=== PATIENT | female | born 1950 | race Caucasian/White ===

== ENCOUNTER 2017-08-14 08:55 | Day surgery (SDC) | payer MEDICARE ==
[~2017-08-14] VITALS: Ht 154.9 cm; Wt 97.7 kg
[2017-08-14 09:35] VITALS: BP 121/65
[2017-08-14 10:10] LABS: INTERNATIONAL NORMALIZED RATIO 1.23 (0.93-1.1); PROTHROMBIN TIME 12.7 Seconds (9.6-11.5)
[2017-08-14] MEDS ORDERED: FENTANYL PF 100 MCG/2ML ONE (10:40)
[2017-08-14] MEDS ORDERED: MIDAZOLAM 1 MG/ML, 2ML ONE (10:40)
[2017-08-14] MEDS ORDERED: FLUMAZENIL 0.1 MG/1 ML, 5ML ONE (10:40)
[2017-08-14] MEDS ORDERED: NALOXONE 1 MG/ML, 2ML ONE (10:41)
[2017-08-14] MEDS ORDERED: LIDOCAINE 1%, 10ML ONE (10:46)
[2017-08-14] MEDS ORDERED: VISIPAQUE 320MG/ML, 50ML BOTTLE ONE (11:55)
== END 2017-08-14 13:35 | disposition home or self-care (01) ==
LOC: OUT 08:55
PROVIDERS: ATTEND Internal Medicine Gastroenterology
DX: K74.69 Other cirrhosis of liver (principal); R18.8 Other ascites; Z79.899 Other long term (current) drug therapy; E66.9 Obesity, unspecified; Z68.39 Body mass index [BMI] 39.0-39.9, adult; I10 Essential (primary) hypertension; E11.9 Type 2 diabetes mellitus without complications; E03.9 Hypothyroidism, unspecified; Z90.49 Acquired absence of other specified parts of digestive tract; Z79.82 Long term (current) use of aspirin
CPT/HCPCS: 36011; 36415; 37200; 75970; 76937; 85610; 88307; 88313; 99156; 99157; C1751; C1769; C1894; J2250; J3010; J3490; Q9967; J2310

== ENCOUNTER → 2018-01-20 | Outpatient (CLI) | payer MEDICARE | END | disposition home or self-care (01) | LOC: CFH 07:48 | PROVIDERS: ATTEND Internal Medicine Gastroenterology | DX: K74.69 Other cirrhosis of liver (principal) | CPT/HCPCS: 76705 ==

== ENCOUNTER → 2019-08-27 | Outpatient (CLI) | payer MEDICARE | END | disposition home or self-care (01) | LOC: CFH 09:16 | PROVIDERS: ATTEND Internal Medicine Gastroenterology | DX: R16.1 Splenomegaly, not elsewhere classified (principal); K75.81 Nonalcoholic steatohepatitis (NASH); R53.83 Other fatigue; R25.2 Cramp and spasm; D61.818 Other pancytopenia; R60.9 Edema, unspecified; K52.9 Noninfective gastroenteritis and colitis, unspecified; E11.9 Type 2 diabetes mellitus without complications; K25.9 Gastric ulcer, unspecified as acute or chronic, without hemorrhage or perforation; Z91.012 Allergy to eggs; Z90.49 Acquired absence of other specified parts of digestive tract | CPT/HCPCS: 76705 ==

== ENCOUNTER → 2019-09-18 | Outpatient (CLI) | payer MEDICARE ==
[~2019-09-18] MED LIST: OMNIPAQUE 350 MG/ML, 100ML BOTTLE ONE
[2019-09-18 15:56] LABS: MEAN CORPUSCULAR HEMOGLOBIN 33.3 pg (27.0-34.8); MEAN CORPUSCULAR HGB CONC 34.1 g/dL (32.4-35.8); MEAN CORPUSCULAR VOLUME 97.8 fL (80-100); MEAN PLATELET VOLUME 7.3 fL (7.4-10.4); PLATELET COUNT 64 x10^3/uL (130-400); RED BLOOD COUNT 3.72 x10^6/uL (3.82-5.3); RED CELL DISTRIBUTION WIDTH 15.3 % (9.6-15.2)
[2019-09-18 15:57] LABS: MD YES
[2019-09-18 16:04] LABS: ALBUMIN 3.1 g/dL (3.4-5.0); ANION GAP 8 mmol/L (5-15); CALCIUM 8.9 mg/dL (8.5-10.1); CHLORIDE 113 mmol/L (98-107)
[2019-09-18 16:05] LABS: INTERNATIONAL NORMALIZED RATIO 1.31 (0.93-1.1); PROTHROMBIN TIME 13.9 Seconds (9.6-11.5)
[2019-09-18 16:08] LABS: ALANINE AMINOTRANSFERASE 22 U/L (12-78); ALKALINE PHOSPHATASE 95 U/L (45-117); BILIRUBIN,TOTAL 1.8 mg/dL (0.2-1.0); CREATININE 0.99 mg/dL (0.55-1.02); TOTAL PROTEIN 7.2 g/dL (6.4-8.2)
[2019-09-18 17:13] LABS: BASOS#(MANUAL) 0.04 x10^3/uL (0-0.1); BASOS% (MANUAL) 2 % (0-1); LYMPH#(MANUAL) 0.63 x10^3/uL (1-3.4); LYMPHS% (MANUAL) 30 % (22-44); MONOS#(MANUAL) 0.15 x10^3/uL (0.3-2.7); MONOS% (MANUAL) 7 % (2-9); REACTIVE LYMPHS # (MANUAL) 0.02 x10^3/uL (0-0); REACTIVE LYMPHS % (MANUAL) 1 % (0-0); SEG#(MANUAL) 1.26 x10^3/uL (1.8-6.8); SEGS% (MANUAL) 60 % (42-75)
[2019-09-18 17:14] LABS: <PLATELET ESTIMATE> DECREASED; <RBC MORPHOLOGY> NORMAL
[2019-09-18 17:15] LABS: <PLT MORPHOLOGY> NORMAL PLT MORPH
== END | disposition home or self-care (01) ==
LOC: CFH 14:03
PROVIDERS: ATTEND Internal Medicine Gastroenterology
DX: K86.89 Other specified diseases of pancreas (principal); K85.90 Acute pancreatitis without necrosis or infection, unspecified; R16.1 Splenomegaly, not elsewhere classified; K74.69 Other cirrhosis of liver; R18.8 Other ascites; E11.9 Type 2 diabetes mellitus without complications; I10 Essential (primary) hypertension; E66.01 Morbid (severe) obesity due to excess calories; Z90.49 Acquired absence of other specified parts of digestive tract
CPT/HCPCS: 74170; 80053; 82105; 82565; 85025; 85610; Q9967

== ENCOUNTER 2019-10-02 07:47 | Day surgery (SDC) | payer MEDICARE ==
[~2019-10-02] VITALS: Ht 162.6 cm; Wt 104.0 kg
[2019-10-02] MEDS ORDERED: LACTATED RINGERS 1,000 ML IV SCH (08:41)
[2019-10-02] MEDS ORDERED: FERR-46 PO (08:46)
[2019-10-02] MEDS ORDERED: FURO20TA3 PO (08:46)
[2019-10-02] MEDS ORDERED: CALC1CAP8 PO (08:46)
[2019-10-02] MEDS ORDERED: METO25TA2 PO (08:46)
[2019-10-02] MEDS ORDERED: METF850T10 PO (08:46)
[2019-10-02] MEDS ORDERED: PRAV20TA2 PO (08:46)
[2019-10-02] MEDS ORDERED: PREG25CA PO (08:46)
[2019-10-02] MEDS ORDERED: LEVO100T5 PO (08:46)
[2019-10-02] MEDS ORDERED: SPIR50TA4 PO (08:46)
[2019-10-02] MEDS ORDERED: OMEP-110 PO (08:46)
[2019-10-02] MEDS ORDERED: COLE1TAB2 PO (08:46)
[2019-10-02] MEDS ORDERED: LISI5TAB7 PO (08:46)
[2019-10-02 09:34] VITALS: BP 109/68
[2019-10-02] MEDS ORDERED: PROPOFOL 50 ML ONE (10:00)
[2019-10-02] MEDS ORDERED: LABETALOL 5MG/ML, 20ML IV PRN (10:30)
[2019-10-02] MEDS ORDERED: PROMETHAZINE 25 MG/ML, 1ML IV PRN (10:30)
[2019-10-02] MEDS ORDERED: ONDANSETRON 2MG/ML, 2ML IV PRN (10:30)
[2019-10-02] MEDS ORDERED: OXYcodone 5 MG/5 ML ORAL.SOL UDC PO PRN (10:30)
[2019-10-02] MEDS ORDERED: EPHEDRINE 50 MG/ML, 1ML IVPush PRN (10:30)
[2019-10-02] MEDS ORDERED: FENTANYL PF 100 MCG/2ML IV PRN (10:30)
[2019-10-02] MEDS ORDERED: MEPERIDINE/PF 25MG/ML,1ML IVPush PRN (10:30)
[2019-10-02] MEDS ORDERED: HYDROmorphone 2 MG/ML, 1ML IVPush PRN (10:30)
[2019-10-02] MEDS ORDERED: hydrALAzine 20 MG/ML, 1ML IV PRN (10:30)
== END 2019-10-02 11:45 | disposition home or self-care (01) ==
LOC: OR 07:47
PROVIDERS: ATTEND Internal Medicine Gastroenterology
DX: K75.81 Nonalcoholic steatohepatitis (NASH) (principal); K74.69 Other cirrhosis of liver; I85.10 Secondary esophageal varices without bleeding; K29.50 Unspecified chronic gastritis without bleeding; K21.9 Gastro-esophageal reflux disease without esophagitis; K52.9 Noninfective gastroenteritis and colitis, unspecified; R18.8 Other ascites; E11.9 Type 2 diabetes mellitus without complications; I10 Essential (primary) hypertension; E03.9 Hypothyroidism, unspecified; E78.5 Hyperlipidemia, unspecified; E66.01 Morbid (severe) obesity due to excess calories; Z68.41 Body mass index [BMI] 40.0-44.9, adult; Z79.84 Long term (current) use of oral hypoglycemic drugs; Z79.890 Hormone replacement therapy; Z79.899 Other long term (current) drug therapy; Z91.012 Allergy to eggs; Z90.49 Acquired absence of other specified parts of digestive tract
CPT/HCPCS: 43239; 82962; 88305; 93005; J2704; J7120

== ENCOUNTER → 2020-04-15 | Outpatient (CLI) | payer MEDICARE ==
[~2020-04-15] MED LIST changes: +CALC1CAP8 PO; +COLE1TAB2 PO; +FERR-46 PO; +FURO20TA3 PO; +LEVO100T5 PO; +LISI5TAB7 PO; +METF850T10 PO; +METO25TA2 PO; +OMEP-110 PO; +PRAV20TA2 PO; +PREG25CA PO; +SPIR50TA4 PO
== END | disposition home or self-care (01) ==
LOC: CFH 13:57
PROVIDERS: ATTEND Internal Medicine Gastroenterology
DX: K74.69 Other cirrhosis of liver (principal); R18.8 Other ascites; K76.6 Portal hypertension; R16.1 Splenomegaly, not elsewhere classified; J90 Pleural effusion, not elsewhere classified; R93.89 Abnormal findings on diagnostic imaging of other specified body structures; K75.81 Nonalcoholic steatohepatitis (NASH)
CPT/HCPCS: 74170; Q9967

== ENCOUNTER → 2020-05-24 | Outpatient (CLI) | payer MEDICARE ==
[~2020-05-24] MED LIST changes: +ACID1TAB7 PO; +ALBUMIN HUMAN 25%, 25GM/100ML ONE; +CEFD300C37 PO; +LIDOCAINE 1%, 10ML ONE; +LINE600T12 PO; +MIDO5TAB9 PO; +NAPHAZOLINE EACHEYE; -OMNIPAQUE 350 MG/ML, 100ML BOTTLE ONE; +PHENIRAMINE EACHEYE; +TRAZ50TA66 PO
== END | disposition home or self-care (01) ==
LOC: RAD 14:11
PROVIDERS: ATTEND Internal Medicine Gastroenterology
DX: R18.8 Other ascites (principal); K74.69 Other cirrhosis of liver; Z91.012 Allergy to eggs
CPT/HCPCS: 49083; P9047

== ENCOUNTER → 2020-06-06 | Outpatient (CLI) | payer MEDICARE ==
[~2020-06-06] MED LIST changes: -ALBUMIN HUMAN 25%, 25GM/100ML ONE
== END | disposition home or self-care (01) ==
LOC: RAD 13:30
PROVIDERS: ATTEND Internal Medicine Gastroenterology
DX: R18.8 Other ascites (principal); K74.69 Other cirrhosis of liver; K75.81 Nonalcoholic steatohepatitis (NASH); K72.90 Hepatic failure, unspecified without coma; E11.9 Type 2 diabetes mellitus without complications; I10 Essential (primary) hypertension; E66.01 Morbid (severe) obesity due to excess calories; Z91.012 Allergy to eggs
CPT/HCPCS: 49083